=== PATIENT | female | born 1950 | race Two or more races ===

== ENCOUNTER 2022-01-08 17:31 | Outpatient (CLI) | payer OTHER | END 2022-01-08 17:32 | disposition home or self-care (01) | LOC: SONOGRAMA 17:31 | PROVIDERS: ATTEND Pathology Anatomic Pathology & Clinical Pathology | DX: E04.2 Nontoxic multinodular goiter (principal) ==

== ENCOUNTER 2022-07-13 10:59 | Outpatient (CLI) | payer OTHER | END 2022-07-13 11:05 | disposition home or self-care (01) | LOC: SONOGRAMA 10:59 | PROVIDERS: ATTEND Pathology Anatomic Pathology & Clinical Pathology | DX: D44.0 Neoplasm of uncertain behavior of thyroid gland (principal); E07.9 Disorder of thyroid, unspecified; E04.2 Nontoxic multinodular goiter ==